=== PATIENT | male | born 1990 | race African-American/Black ===

== ENCOUNTER 2024-02-11 20:36 | Emergency (ER) | payer OTHER ==
[~2024-02-11] VITALS: Ht 182.9 cm; Wt 62.7 kg
[2024-02-11 21:46] VITALS: BP 102/58; PULSE 66; RESP 18; TEMP 97.9; O2SAT 100
[2024-02-11] MEDS: KETOROLAC TROMETHAMINE 30 MG/ML VIAL IM ONE (22:41)
[2024-02-11] MEDS: CYCLOBENZAPRINE HCL 10 MG TABLET PO ONE (22:41)
[2024-02-11 23:28] LABS: BASOPHILS % (AUTO) 0.4 % (0.0-2.0); EOSINOPHILS % (AUTO) 0.2 % (1.0-6.0); HEMATOCRIT 41.2 % (41-53); HEMOGLOBIN 13.2 g/dL (13.5-17.5); LYMPHOCYTES # (AUTO) 1.2 K/uL (1.0-4.8); LYMPHOCYTES % (AUTO) 16.3 % (22.0-44.0); MEAN CORPUSCULAR HEMOGLOBIN 23.4 pg (26.0-34.0); MEAN CORPUSCULAR VOLUME 73 fL (80-100); MONOCYTES # (AUTO) 0.4 K/uL (0.1-1.0); MONOCYTES % (AUTO) 5.7 % (2.0-9.0); NEUTROPHILS # (AUTO) 5.9 K/uL (1.8-7.7); NEUTROPHILS % (AUTO) 77.4 % (40.0-70.0); PLATELET COUNT (AUTO) 321 K/uL (150-450); RED BLOOD CELL COUNT(AUTO) 5.66 MIL/uL (4.50-5.90); WHITE BLOOD COUNT (AUTO) 7.6 K/uL (4.5-11.0)
[2024-02-11 23:38] LABS: ANION GAP 10 mmol/L (8-16); CALCIUM, TOTAL 9.8 mg/dL (8.8-10.5); CARBON DIOXIDE 30 mmol/L (22-29); CHLORIDE 98 mmol/L (98-107); CREATININE 0.87 mg/dL (0.60-1.30); GLOMERULAR FILTR. RATE CALC > 60 mL/min (>60); GLUCOSE,RANDOM 96 mg/dL (70-110); POTASSIUM 3.7 mmol/L (3.5-5.1); RBC MORPHOLOGY COMMENT ABNORMAL RBC MORPH; SODIUM SERUM 138 mmol/L (136-145); UREA NITROGEN, BLOOD 14 mg/dL (7-18)
== END 2024-02-12 03:27 ==
LOC: EMS 20:36
DX: L30.9 Dermatitis, unspecified (principal); B37.2 Candidiasis of skin and nail; G82.20 Paraplegia, unspecified; Z46.6 Encounter for fitting and adjustment of urinary device
CPT/HCPCS: 99283; 80048; 85025; 36415; J1885

== ENCOUNTER 2024-02-17 15:13 | Inpatient (IN) | payer OTHER ==
[~2024-02-17] VITALS: Ht 185.4 cm; Wt 65.9 kg
[2024-02-17 16:50] LABS: BASOPHILS % (AUTO) 0.5 % (0.0-2.0); EOSINOPHILS % (AUTO) 0.9 % (1.0-6.0); HEMATOCRIT 40.4 % (41-53); HEMOGLOBIN 12.8 g/dL (13.5-17.5); LYMPHOCYTES # (AUTO) 1.2 K/uL (1.0-4.8); LYMPHOCYTES % (AUTO) 20.1 % (22.0-44.0); MEAN CORPUSCULAR HEMOGLOBIN 23.2 pg (26.0-34.0); MEAN CORPUSCULAR HGB CONC 31.5 G/dL (31.0-37.0); MEAN CORPUSCULAR VOLUME 74 fL (80-100); MONOCYTES # (AUTO) 0.4 K/uL (0.1-1.0); NEUTROPHILS # (AUTO) 4.4 K/uL (1.8-7.7); NEUTROPHILS % (AUTO) 72.5 % (40.0-70.0); PLATELET COUNT (AUTO) 310 K/uL (150-450); RED CELL DISTRIBUTION WIDTH 17.4 % (11.5-14.5); WHITE BLOOD COUNT (AUTO) 6.1 K/uL (4.5-11.0)
[2024-02-17 17:03] LABS: ANION GAP 5 mmol/L (8-16); CALCIUM, TOTAL 9.4 mg/dL (8.8-10.5); CARBON DIOXIDE 33 mmol/L (22-29); CHLORIDE 102 mmol/L (98-107); GLOMERULAR FILTR. RATE CALC > 60 mL/min (>60); GLUCOSE,RANDOM 56 mg/dL (70-110); POTASSIUM 3.6 mmol/L (3.5-5.1); SODIUM SERUM 140 mmol/L (136-145); UREA NITROGEN, BLOOD 15 mg/dL (7-18)
[2024-02-17 17:18] LABS: RBC MORPHOLOGY COMMENT ABNORMAL RBC MORPH
[2024-02-17 17:27] LABS: ALANINE AMINOTRANSFERASE 24 U/L (12-78); ALKALINE PHOSPHATASE 77 U/L (46-116); ASPARTATE AMINOTRANSFERASE 24 U/L (15-37); BILIRUBIN,TOTAL 0.4 mg/dL (0.1-1.0); CREATINE KINASE, TOTAL ONLY 495 U/L (39-308); TOTAL PROTEIN, SERUM 8.2 g/dL (6.4-8.2)
[2024-02-17] MEDS: FentaNYL CITRATE PF 100 MCG/2 ML VIAL IVP ONE (20:35)
[2024-02-17] MEDS: ACETAMINOPHEN 500 MG TABLET PO ONE ×2 (20:37→20:39)
[2024-02-17] MEDS ORDERED: MORPHINE SULFATE 2 MG/ML SYRINGE IVP PRN (21:00)
[2024-02-17] MEDS: DOCUSATE SODIUM 100 MG CAPSULE PO SCH (21:00)
[2024-02-17] MEDS ORDERED: BISACODYL 10 MG RECTAL RECTAL SUPPOSITORY PR PRN (21:00)
[2024-02-17] MEDS ORDERED: ACETAMINOPHEN 325 MG TABLET PO PRN (21:00)
[2024-02-17] MEDS ORDERED: ONDANSETRON HCL 4 MG/2 ML VIAL IVP PRN (21:00)
[2024-02-17 22:50] VITALS: BP 109/70; PULSE 57; RESP 20; TEMP 98.1; O2SAT 98
[2024-02-18] MEDS: HEPARIN SODIUM,PORCINE 5,000 UNITS/ML VIAL SQ SCH
[2024-02-18] MEDS: HYDROCODONE/ACETAMINOPHEN 5-325 MG TABLET PO PRN (00:38)
[2024-02-18] MEDS: ZOLPIDEM TARTRATE 5 MG TABLET PO PRN (00:38)
[2024-02-18] MEDS: PANTOPRAZOLE SODIUM 40 MG DR TABLET PO SCH (08:08)
[2024-02-18 08:29] VITALS: BP 117/58; PULSE 56; RESP 19; TEMP 98; O2SAT 98
[2024-02-18] MEDS: BACLOFEN 10 MG TABLET PO SCH (15:22)
[2024-02-18] MEDS: MAGNESIUM HYDROXIDE SUSPENSION 30 ML UDCUP PO PRN (18:46)
[2024-02-18 19:43] VITALS: BP 101/59; PULSE 59; RESP 18; TEMP 98.1; O2SAT 100
[2024-02-18] MEDS: LevETIRAcetam 500 MG TABLET PO SCH (20:23)
[2024-02-19 04:29] VITALS: BP 108/69; PULSE 63; RESP 18; TEMP 97.8; O2SAT 100
[2024-02-19 07:54] VITALS: BP 125/75; PULSE 78; RESP 18; TEMP 97.7; O2SAT 96
[2024-02-19] MEDS: DICLOFENAC SODIUM 1% 100 GM GEL [4GM] TP SCH (12:38)
[2024-02-19] MEDS: LIDOCAINE 5% TRANSDERMAL PATCH TD SCH (12:38)
[2024-02-19 19:25] VITALS: BP 112/58; PULSE 68; RESP 18; TEMP 98.5; O2SAT 95
[2024-02-19] MEDS: -LIDODERM PATCH NOTE- MISC SCH (21:20)
[2024-02-20 07:40] VITALS: BP 114/70; PULSE 59; RESP 18; TEMP 97.9; O2SAT 96
[2024-02-20] MEDS ORDERED: LIDO700A15 TP (11:02)
[2024-02-20] MEDS ORDERED: BACL10TA PO (11:02)
[2024-02-20] MEDS ORDERED: DOCU-385 PO (11:03)
[2024-02-20] MEDS ORDERED: HEPA500018 SQ (11:03)
[2024-02-20] MEDS ORDERED: DICL100G60 TP (11:03)
[2024-02-20] MEDS ORDERED: PANT-31 PO (11:04)
[2024-02-20] MEDS ORDERED: LEVE-71 PO (11:04)
[2024-02-20] MEDS ORDERED: MAGN-169 PO (11:05)
[2024-02-20] MEDS ORDERED: BISA10SU11 PR (11:05)
[2024-02-20] MEDS ORDERED: ACET-2247 PO (11:05)
== END 2024-02-20 11:45 | disposition home or self-care (01) | DRG 101 ==
LOC: EMS 15:13 → EDH 21:05 → 6S 22:45
PROVIDERS: ADMIT Internal Medicine; ATTEND Internal Medicine
DX: G40.909 Epilepsy, unspecified, not intractable, without status epilepticus (principal); G82.20 Paraplegia, unspecified; Z91.012 Allergy to eggs; G89.29 Other chronic pain; N31.8 Other neuromuscular dysfunction of bladder; Z91.199 Patient's noncompliance with other medical treatment and regimen due to unspecified reason
CPT/HCPCS: 80053; 82550; 85025; 93005; 99285; J1644

== ENCOUNTER 2024-08-27 02:50 | Inpatient (IN) | payer OTHER ==
[~2024-08-27] VITALS: Ht 172.7 cm; Wt 72.0 kg
[~2024-08-27 02:50] MED LIST: ACET-2247 PO; BACL10TA PO; BISA10SU11 PR; DICL100G60 TP; DOCU-385 PO; HEPA500018 SQ; LEVE-71 PO; LIDO-57 TP; MAGN-169 PO; PANT-31 PO
[2024-08-27 05:16] LABS: BASOPHILS % (AUTO) 0.4 % (0.0-2.0); EOSINOPHILS % (AUTO) 1.1 % (1.0-6.0); HEMATOCRIT 40.4 % (41-53); HEMOGLOBIN 12.8 g/dL (13.5-17.5); LYMPHOCYTES # (AUTO) 1.4 K/uL (1.0-4.8); LYMPHOCYTES % (AUTO) 25.3 % (22.0-44.0); MEAN CORPUSCULAR HEMOGLOBIN 24.5 pg (26.0-34.0); MEAN CORPUSCULAR HGB CONC 31.7 G/dL (31.0-37.0); MEAN CORPUSCULAR VOLUME 77 fL (80-100); MONOCYTES # (AUTO) 0.5 K/uL (0.1-1.0); MONOCYTES % (AUTO) 8.5 % (2.0-9.0); NEUTROPHILS # (AUTO) 3.5 K/uL (1.8-7.7); NEUTROPHILS % (AUTO) 64.7 % (40.0-70.0); PLATELET COUNT (AUTO) 298 K/uL (150-450); RED BLOOD CELL COUNT(AUTO) 5.23 MIL/uL (4.50-5.90); RED CELL DISTRIBUTION WIDTH 15.4 % (11.5-14.5); WHITE BLOOD COUNT (AUTO) 5.4 K/uL (4.5-11.0)
[2024-08-27 05:32] LABS: RBC MORPHOLOGY COMMENT ABNORMAL RBC MORPH
[2024-08-27 05:37] LABS: ANION GAP 4 mmol/L (8-16); CALCIUM, TOTAL 9.2 mg/dL (8.8-10.5); CARBON DIOXIDE 34 mmol/L (22-29); CHLORIDE 99 mmol/L (98-107); CREATININE 0.66 mg/dL (0.60-1.30); GLOMERULAR FILTR. RATE CALC > 60 mL/min (>60); GLUCOSE,RANDOM 103 mg/dL (70-110); POTASSIUM 3.4 mmol/L (3.5-5.1); SODIUM SERUM 137 mmol/L (136-145); UREA NITROGEN, BLOOD 20 mg/dL (7-18)
[2024-08-27] MEDS: HYDROCODONE/ACETAMINOPHEN 5-325 MG TABLET PO ONE (05:48)
[2024-08-27] MEDS ORDERED: MAGNESIUM HYDROXIDE SUSPENSION 30 ML UDCUP PO PRN (15:30)
[2024-08-27] MEDS ORDERED: BISACODYL 10 MG RECTAL RECTAL SUPPOSITORY PR PRN (15:30)
[2024-08-27] MEDS ORDERED: ONDANSETRON HCL 4 MG/2 ML VIAL IVP PRN (15:30)
[2024-08-27] MEDS ORDERED: SENN-376 PO (15:35)
[2024-08-27] MEDS ORDERED: ESCI-8 PO (15:35)
[2024-08-27] MEDS ORDERED: QUET25TA PO (15:35)
[2024-08-27] MEDS ORDERED: GABA-1181 PO (15:35)
[2024-08-27] MEDS ORDERED: LACT10SO85 PO (15:35)
[2024-08-27] MEDS: HEPARIN SODIUM,PORCINE 5,000 UNITS/ML VIAL SQ SCH (16:00)
[2024-08-27] MEDS: DICLOFENAC SODIUM 1% 100 GM GEL [2GM] TP SCH (16:00)
[2024-08-27] MEDS: BACLOFEN 10 MG TABLET PO SCH (16:26)
[2024-08-27 20:15] VITALS: BP 123/61; PULSE 68; RESP 19; TEMP 98.6; O2SAT 100
[2024-08-27] MEDS: GABAPENTIN 300 MG CAPSULE PO SCH (20:20)
[2024-08-27] MEDS: DOCUSATE SODIUM 100 MG CAPSULE PO SCH (20:20)
[2024-08-27] MEDS: SENNOSIDES 8.6 MG TABLET PO SCH (20:20)
[2024-08-27] MEDS: LevETIRAcetam 500 MG TABLET PO SCH (20:20)
[2024-08-28 05:01] VITALS: BP 111/66; PULSE 63; RESP 18; TEMP 97.6; O2SAT 100
[2024-08-28 07:17] VITALS: BP 108/64; PULSE 65; RESP 18; TEMP 97.9; O2SAT 100
[2024-08-28] MEDS: PANTOPRAZOLE SODIUM 40 MG DR TABLET PO SCH (07:56)
[2024-08-28] MEDS: ESCITALOPRAM OXALATE 10 MG TABLET PO SCH (07:56)
[2024-08-28] MEDS ORDERED: PANTOPRAZOLE SODIUM 40 MG DR TABLET PO SCH (09:00)
[2024-08-28] MEDS: BISACODYL 10 MG RECTAL RECTAL SUPPOSITORY PR SCH (09:00)
[2024-08-28] MEDS: LACTULOSE 20 GM/30 ML SOLUTION UDCUP PO PRN (10:31)
[2024-08-28 20:00] VITALS: BP 121/73; PULSE 58; RESP 18; TEMP 98.1; O2SAT 100
[2024-08-29] MEDS: QUEtiapine FUMARATE 25 MG TABLET PO PRN (02:57)
[2024-08-29 04:30] VITALS: BP 142/74; PULSE 86; RESP 18; TEMP 97.3; O2SAT 100
[2024-08-29 08:00] VITALS: BP 97/75; PULSE 73; RESP 18; TEMP 97.7; O2SAT 100
[2024-08-29 20:10] VITALS: BP 115/57; PULSE 66; RESP 20; TEMP 98.4; O2SAT 97
[2024-08-30 05:52] VITALS: BP 128/72; PULSE 79; RESP 18; TEMP 97.7; O2SAT 99
[2024-08-30 07:12] VITALS: BP 101/60; PULSE 60; RESP 20; TEMP 97.9; O2SAT 100
[2024-08-30 20:13] VITALS: BP 115/67; PULSE 85; RESP 18; TEMP 97.9; O2SAT 98
[2024-08-31 09:00] VITALS: BP 120/65; PULSE 75; RESP 18; TEMP 98.1; O2SAT 100
[2024-08-31 19:35] VITALS: BP 130/79; PULSE 73; RESP 18; TEMP 98.1; O2SAT 100
[2024-09-01 04:10] VITALS: BP 109/65; PULSE 59; RESP 16; TEMP 97.9; O2SAT 100
[2024-09-01 08:40] VITALS: BP 118/58; PULSE 72; RESP 18; TEMP 97.6; O2SAT 96
[2024-09-01 20:26] VITALS: BP 128/99; PULSE 87; RESP 18; TEMP 98.1; O2SAT 95
[2024-09-02 07:34] VITALS: BP 111/68; PULSE 60; RESP 18; TEMP 98.1; O2SAT 100
[2024-09-02 12:35] LABS: BASOPHILS % (AUTO) 0.6 % (0.0-2.0); EOSINOPHILS % (AUTO) 1.2 % (1.0-6.0); HEMATOCRIT 43.4 % (41-53); HEMOGLOBIN 13.6 g/dL (13.5-17.5); LYMPHOCYTES # (AUTO) 1.3 K/uL (1.0-4.8); LYMPHOCYTES % (AUTO) 26.7 % (22.0-44.0); MEAN CORPUSCULAR HGB CONC 31.3 G/dL (31.0-37.0); MEAN CORPUSCULAR VOLUME 77 fL (80-100); MONOCYTES # (AUTO) 0.3 K/uL (0.1-1.0); NEUTROPHILS # (AUTO) 3.1 K/uL (1.8-7.7); NEUTROPHILS % (AUTO) 64.5 % (40.0-70.0); PLATELET COUNT (AUTO) 309 K/uL (150-450); RED BLOOD CELL COUNT(AUTO) 5.67 MIL/uL (4.50-5.90); RED CELL DISTRIBUTION WIDTH 15.4 % (11.5-14.5); WHITE BLOOD COUNT (AUTO) 4.8 K/uL (4.5-11.0)
[2024-09-02 13:44] LABS: CALCIUM, TOTAL 9.7 mg/dL (8.8-10.5); CARBON DIOXIDE 31 mmol/L (22-29); CREATININE 0.69 mg/dL (0.60-1.30); GLOMERULAR FILTR. RATE CALC > 60 mL/min (>60); GLUCOSE,RANDOM 102 mg/dL (70-110); POTASSIUM 4.3 mmol/L (3.5-5.1); SODIUM SERUM 144 mmol/L (136-145); UREA NITROGEN, BLOOD 18 mg/dL (7-18)
[2024-09-02 14:14] LABS: RBC MORPHOLOGY COMMENT ABNORMAL RBC MORPH
[2024-09-02 20:02] VITALS: BP 127/68; PULSE 79; RESP 18; TEMP 98.4; O2SAT 98
[2024-09-03 05:35] VITALS: BP 115/69; PULSE 82; RESP 18; TEMP 97.3; O2SAT 97
[2024-09-03 14:06] LABS: ANION GAP 9 mmol/L (8-16); CHLORIDE 104 mmol/L (98-107)
[2024-09-03 19:30] VITALS: BP 110/64; PULSE 84; RESP 19; TEMP 98.1; O2SAT 100
[2024-09-04 05:15] VITALS: BP 118/68; PULSE 76; RESP 18; TEMP 97.3; O2SAT 100
[2024-09-04] MEDS: ACETAMINOPHEN 325 MG TABLET PO PRN (11:38)
[2024-09-04 16:09] VITALS: BP 102/65; PULSE 81; RESP 18; TEMP 98.1; O2SAT 100
[2024-09-04 19:30] VITALS: BP 112/56; PULSE 91; RESP 17; TEMP 98.6; O2SAT 100
[2024-09-05 06:51] VITALS: BP 113/65; PULSE 78; RESP 18; TEMP 97.8; O2SAT 100
[2024-09-05 08:30] VITALS: BP 115/68; PULSE 80; RESP 19; TEMP 97.9; O2SAT 98
[2024-09-05] MEDS: MULTIVITAMINS WITH MINERALS, THERAPEUTIC TABLET PO SCH (09:30)
[2024-09-05 19:05] LABS: APPEARANCE,URINE HAZY (CLEAR); BILIRUBIN,URINE NEGATIVE (NEGATIVE); COLOR,URINE LIGHT YELLOW (YELLOW); GLUCOSE, URINE (UA) NEGATIVE (NEGATIVE); KETONES,URINE NEGATIVE (NEGATIVE); LEUKOCYTE ESTERASE ,URINE NEGATIVE (NEGATIVE); NITRATE,URINE NEGATIVE (NEGATIVE); OCCULT BLOOD,URINE NEGATIVE (NEGATIVE); PROTEIN,URINE NEGATIVE (NEGATIVE); SPECIFIC GRAVITIY, URINE 1.018 (1.003-1.030); UROBILINOGEN,URINE <=1.0 mg/dL (<=1.0)
[2024-09-05 19:10] LABS: ALCOHOL, URINE DRUG SCREEN NEGATIVE (NEGATIVE); AMPHET/METH SCREEN,URINE NEGATIVE (NEGATIVE); BARBITURATE SCREEN, URINE NEGATIVE (NEGATIVE); BENZODIAZEPINES SCREEN,URINE NEGATIVE (NEGATIVE); CANNABINOID SCREEN,URINE NEGATIVE (NEGATIVE); COCAINE SCREEN,URINE NEGATIVE (NEGATIVE); METHADONE SCREEN, URINE NEGATIVE (NEGATIVE); OPIATE SCREEN,URINE NEGATIVE (NEGATIVE); PHENCYCLIDINE SCREEN,URINE NEGATIVE (NEGATIVE)
[2024-09-05 19:23] VITALS: BP 118/66; PULSE 71; RESP 19; TEMP 98.1; O2SAT 98
[2024-09-06 07:30] VITALS: BP 111/59; PULSE 66; RESP 19; TEMP 98; O2SAT 99
[2024-09-06 19:15] VITALS: BP 123/69; PULSE 62; RESP 18; TEMP 98.4; O2SAT 100
[2024-09-07 05:45] VITALS: BP 114/76; PULSE 56; RESP 18; TEMP 97.5; O2SAT 100
[2024-09-07 10:20] VITALS: BP 132/94; PULSE 88; RESP 20; TEMP 98.2; O2SAT 95
[2024-09-07 19:28] VITALS: BP 123/65; PULSE 75; RESP 19; TEMP 98.2; O2SAT 97
[2024-09-08 06:26] VITALS: BP 108/68; PULSE 71; RESP 18; TEMP 97.7; O2SAT 100
[2024-09-08 08:15] VITALS: BP 101/57; PULSE 77; RESP 18; TEMP 97.7; O2SAT 98
[2024-09-08 19:30] VITALS: BP 122/68; PULSE 78; RESP 18; TEMP 98.2; O2SAT 100
[2024-09-08 20:10] VITALS: BP 123/78; PULSE 74; RESP 18; TEMP 98.4; O2SAT 97
[2024-09-09 04:45] VITALS: BP 121/72; PULSE 63; RESP 18; TEMP 97.5; O2SAT 100
[2024-09-09 07:58] VITALS: BP 116/76; PULSE 77; RESP 20; TEMP 97.7; O2SAT 100
[2024-09-09 19:25] VITALS: BP 136/66; PULSE 90; RESP 18; TEMP 98.8; O2SAT 98
[2024-09-10 04:55] VITALS: BP 108/69; PULSE 77; RESP 16; TEMP 98.2; O2SAT 100
[2024-09-10 08:38] VITALS: BP 116/66; PULSE 62; RESP 18; TEMP 98; O2SAT 100
[2024-09-10 19:20] VITALS: BP 131/62; PULSE 87; RESP 18; TEMP 98.9; O2SAT 98
[2024-09-11 05:05] VITALS: BP 102/69; PULSE 65; RESP 18; TEMP 98.1; O2SAT 97
[2024-09-11 08:22] VITALS: BP 101/61; PULSE 74; RESP 18; TEMP 97.9; O2SAT 100
[2024-09-11 17:52] LABS: APPEARANCE,URINE HAZY (CLEAR); BILIRUBIN,URINE NEGATIVE (NEGATIVE); COLOR,URINE LIGHT YELLOW (YELLOW); GLUCOSE, URINE (UA) NEGATIVE (NEGATIVE); KETONES,URINE NEGATIVE (NEGATIVE); LEUKOCYTE ESTERASE ,URINE SMALL (NEGATIVE); NITRATE,URINE NEGATIVE (NEGATIVE); OCCULT BLOOD,URINE NEGATIVE (NEGATIVE); PH,URINE 6.5 (5.0-8.0); PROTEIN,URINE 30-70 mg/dL (NEGATIVE); SPECIFIC GRAVITIY, URINE 1.021 (1.003-1.030); UROBILINOGEN,URINE <=1.0 mg/dL (<=1.0)
[2024-09-11 19:01] LABS: BACTERIA,URINE None Seen /HPF (None Seen); RBC,URINE 0-2 /HPF (0-2); SQUAMOUS EPITHELIAL CELL,UR Few /LPF (None Seen); YEAST,URINE None Seen /HPF (None Seen)
[2024-09-11 19:02] LABS: AMORPHOUS SEDIMENT,UR Few /LPF (None Seen)
[2024-09-11 19:21] VITALS: BP 118/66; PULSE 85; RESP 18; TEMP 98.4; O2SAT 99
[2024-09-12 01:00] VITALS: BP 144/100; PULSE 89; RESP 18; TEMP 98.6; O2SAT 100
[2024-09-12 08:41] VITALS: BP 105/65; PULSE 74; RESP 18; TEMP 97.9; O2SAT 100
[2024-09-12 21:09] VITALS: BP 113/68; PULSE 78; RESP 19; TEMP 98.4; O2SAT 100
[2024-09-14 20:40] VITALS: BP 122/77; PULSE 86; RESP 16; TEMP 98.1; O2SAT 98
[2024-09-15 20:05] VITALS: BP 113/63; PULSE 70; RESP 16; TEMP 98.2; O2SAT 100
[2024-09-16 08:18] VITALS: BP 103/56; PULSE 72; RESP 18; TEMP 97.5; O2SAT 100
[2024-09-17 08:05] VITALS: BP 113/70; PULSE 74; RESP 18; TEMP 98.1; O2SAT 100
[2024-09-18] MEDS: ZOLPIDEM TARTRATE 5 MG TABLET PO PRN (00:43)
[2024-09-18 07:00] VITALS: BP 101/66; PULSE 71; RESP 20; TEMP 98; O2SAT 99
[2024-09-18] MEDS ORDERED: MULT-711 PO (09:13)
[2024-09-18] MEDS ORDERED: LACT10SO85 PO (09:16)
[2024-09-18] MEDS ORDERED: QUET100T PO (09:17)
== END 2024-09-18 09:45 | DRG 593 ==
LOC: EMS 02:51 → EDH 10:26 → 6N 14:35 → 6S 09-11 10:18
PROVIDERS: ADMIT Internal Medicine; ATTEND Internal Medicine
DX: L89.153 Pressure ulcer of sacral region, stage 3 (principal); E44.0 Moderate protein-calorie malnutrition; G82.20 Paraplegia, unspecified; F33.0 Major depressive disorder, recurrent, mild; G40.909 Epilepsy, unspecified, not intractable, without status epilepticus; L89.313 Pressure ulcer of right buttock, stage 3; I10 Essential (primary) hypertension; D64.9 Anemia, unspecified; G89.29 Other chronic pain; N31.9 Neuromuscular dysfunction of bladder, unspecified; K59.00 Constipation, unspecified; K21.9 Gastro-esophageal reflux disease without esophagitis; M24.412 Recurrent dislocation, left shoulder; Z91.199 Patient's noncompliance with other medical treatment and regimen due to unspecified reason; Z86.718 Personal history of other venous thrombosis and embolism; Z79.899 Other long term (current) drug therapy; Z68.24 Body mass index [BMI] 24.0-24.9, adult; Z91.012 Allergy to eggs; Z74.01 Bed confinement status
CPT/HCPCS: 73200; 73221; 80048; 80307; 81001; 81003; 85025; 97110; 97163; 97166; 97530; 97535; 99285; J1644

== ENCOUNTER 2024-10-24 17:24 | Inpatient (IN) | payer OTHER ==
[~2024-10-24] VITALS: Ht 182.9 cm; Wt 60.0 kg
[~2024-10-24 17:24] MED LIST changes: -BACL10TA PO; -BISA10SU11 PR; +ESCI-8 PO; +GABA-1181 PO; +LACT10SO85 PO; -LIDO-57 TP; +MULT-711 PO; +QUET100T PO; +SENN-376 PO
[2024-10-24] MEDS ORDERED: BACL10TA PO (18:18)
[2024-10-24] MEDS ORDERED: ONDANSETRON HCL 4 MG/2 ML VIAL IVP PRN (19:15)
[2024-10-24] MEDS ORDERED: ACETAMINOPHEN 325 MG TABLET PO PRN (19:15)
[2024-10-24] MEDS ORDERED: MAGNESIUM HYDROXIDE SUSPENSION 30 ML UDCUP PO PRN (19:15)
[2024-10-24] MEDS ORDERED: OxyCODONE HCL/ACETAMINOPHEN 5-325 MG TABLET PO PRN (19:15)
[2024-10-24 19:23] LABS: BASOPHILS % (AUTO) 0.3 % (0.0-2.0); EOSINOPHILS % (AUTO) 0.2 % (1.0-6.0); HEMOGLOBIN 13.9 g/dL (13.5-17.5); MEAN CORPUSCULAR HEMOGLOBIN 24.4 pg (26.0-34.0); MEAN CORPUSCULAR HGB CONC 32.2 G/dL (31.0-37.0); MEAN CORPUSCULAR VOLUME 76 fL (80-100); MONOCYTES # (AUTO) 0.5 K/uL (0.1-1.0); MONOCYTES % (AUTO) 6.3 % (2.0-9.0); NEUTROPHILS # (AUTO) 5.8 K/uL (1.8-7.7); NEUTROPHILS % (AUTO) 79.2 % (40.0-70.0); PLATELET COUNT (AUTO) 261 K/uL (150-450); RED BLOOD CELL COUNT(AUTO) 5.68 MIL/uL (4.50-5.90); RED CELL DISTRIBUTION WIDTH 14.2 % (11.5-14.5); WHITE BLOOD COUNT (AUTO) 7.3 K/uL (4.5-11.0)
[2024-10-24 19:32] LABS: ANION GAP 4 mmol/L (8-16); CALCIUM, TOTAL 9.6 mg/dL (8.8-10.5); CARBON DIOXIDE 33 mmol/L (22-29); CHLORIDE 102 mmol/L (98-107); GLOMERULAR FILTR. RATE CALC > 60 mL/min (>60); GLUCOSE,RANDOM 93 mg/dL (70-110); POTASSIUM 4.3 mmol/L (3.5-5.1); SODIUM SERUM 139 mmol/L (136-145); UREA NITROGEN, BLOOD 16 mg/dL (7-18)
[2024-10-24] MEDS: BACLOFEN 10 MG TABLET PO SCH (21:00)
[2024-10-24] MEDS: APIXABAN 2.5 MG TABLET PO SCH (21:00)
[2024-10-24] MEDS: DOCUSATE SODIUM 100 MG CAPSULE PO SCH (21:00)
[2024-10-24] MEDS: LevETIRAcetam 500 MG TABLET PO SCH (21:00)
[2024-10-24] MEDS: GABAPENTIN 300 MG CAPSULE PO SCH (21:00)
[2024-10-24 23:00] VITALS: BP 103/81; PULSE 80; RESP 18; TEMP 98.6; O2SAT 99
[2024-10-25] VITALS: BP 100/53; PULSE 75; RESP 18; TEMP 98.4; O2SAT 100
[2024-10-25 04:00] VITALS: BP 100/53; PULSE 75; RESP 18; TEMP 98.4; O2SAT 100
[2024-10-25 06:17] LABS: APPEARANCE,URINE TURBID (CLEAR); BILIRUBIN,URINE NEGATIVE (NEGATIVE); COLOR,URINE YELLOW (YELLOW); GLUCOSE, URINE (UA) NEGATIVE (NEGATIVE); KETONES,URINE NEGATIVE (NEGATIVE); LEUKOCYTE ESTERASE ,URINE LARGE (NEGATIVE); NITRATE,URINE NEGATIVE (NEGATIVE); OCCULT BLOOD,URINE NEGATIVE (NEGATIVE); PROTEIN,URINE 30-70 mg/dL (NEGATIVE); SPECIFIC GRAVITIY, URINE 1.022 (1.003-1.030); UROBILINOGEN,URINE <=1.0 mg/dL (<=1.0)
[2024-10-25 06:24] LABS: ALCOHOL, URINE DRUG SCREEN NEGATIVE (NEGATIVE); AMPHET/METH SCREEN,URINE NEGATIVE (NEGATIVE); BARBITURATE SCREEN, URINE NEGATIVE (NEGATIVE); BENZODIAZEPINES SCREEN,URINE NEGATIVE (NEGATIVE); CANNABINOID SCREEN,URINE NEGATIVE (NEGATIVE); COCAINE SCREEN,URINE NEGATIVE (NEGATIVE); METHADONE SCREEN, URINE NEGATIVE (NEGATIVE); OPIATE SCREEN,URINE NEGATIVE (NEGATIVE); PHENCYCLIDINE SCREEN,URINE NEGATIVE (NEGATIVE)
[2024-10-25 07:11] LABS: AMORPHOUS SEDIMENT,UR Many /LPF (None Seen); BACTERIA,URINE Many /HPF (None Seen); RBC,URINE None Seen /HPF (0-2); SQUAMOUS EPITHELIAL CELL,UR Few /LPF (None Seen)
[2024-10-25 08:00] VITALS: BP 114/66; PULSE 80; RESP 15; TEMP 98.1; O2SAT 100
[2024-10-25] MEDS: MULTIVITAMINS WITH MINERALS, THERAPEUTIC TABLET PO SCH (09:00)
[2024-10-25] MEDS: FAMOTIDINE 20 MG TABLET PO SCH (09:00)
[2024-10-25 11:32] VITALS: BP 121/70; PULSE 87; RESP 16; TEMP 98.2; O2SAT 100
[2024-10-25] MEDS: BACLOFEN 10 MG TABLET PO SCH (18:05)
[2024-10-25 19:06] VITALS: BP 111/64; PULSE 88; RESP 18; TEMP 98.2; O2SAT 100
[2024-10-25] MEDS: ZOLPIDEM TARTRATE 5 MG TABLET PO PRN (20:39)
[2024-10-25] MEDS ORDERED: BACLOFEN 10 MG TABLET PO SCH (21:00)
[2024-10-26] MEDS ORDERED: APIX2.5T PO (11:58)
[2024-10-26] MEDS ORDERED: FAMO20 PO (11:59)
== END 2024-10-26 16:00 | DRG 53 ==
LOC: EDUNIT# 17:24 → EMS 17:28 → EDH 19:04 → 5N 23:11 → 6S 10-25 11:55
PROVIDERS: ADMIT Internal Medicine; ATTEND Internal Medicine
DX: G82.20 Paraplegia, unspecified (principal); G40.909 Epilepsy, unspecified, not intractable, without status epilepticus; M24.412 Recurrent dislocation, left shoulder; L89.152 Pressure ulcer of sacral region, stage 2; N31.9 Neuromuscular dysfunction of bladder, unspecified; Z91.199 Patient's noncompliance with other medical treatment and regimen due to unspecified reason; Z79.899 Other long term (current) drug therapy; Z86.718 Personal history of other venous thrombosis and embolism
CPT/HCPCS: 80048; 80307; 81001; 82550; 85025; 87086; 99285